=== PATIENT | female | born 1970 | race Caucasian/White ===

== ENCOUNTER 2017-03-24 10:50 | Observation (INO) ==
[2017-03-24] MEDS ORDERED: Ipratropium/Albuterol Neb 3 ML IH ONE (11:02)
[2017-03-24] MEDS ORDERED: methylPREDNISolone 125 MG/2 ML VIAL IVP ONE (12:04)
[2017-03-24] MEDS ORDERED: 0.9 % Sodium Chloride 1,000 ML IVC ONE (12:04)
[2017-03-24] MEDS ORDERED: Ketorolac 30 MG/ML VIAL IVP ONE (12:04)
[2017-03-24] MEDS ORDERED: Azithromycin 500 MG in D5% in Water 250 ML IVPB ONE (12:04)
--- NOTE | 2017-03-24 12:15 | Emergency Department Note ---
Disposition Clinical Impression: Sepsis Pneumonia Qualifiers: Pneumonia type: due to unspecified organism Laterality: left Lung location: lower lobe of lung Qualified Code(s): J18.1 - Lobar pneumonia, unspecified organism Disposition: Admitted As Inpatient Condition: Fair Time of Disposition: 13:50 ([facility]) URI/Sore Throat HPI - General Chief Complaint: ED Upper Respiratory Infection Stated Complaint: I am sick Time Seen by Provider: 03/24/17 11:00 Source: patient Mode of arrival: ambulatory Limitations: no limitations - History of Present Illness HPI Narrative: Runniness fever chills cough congestion and apnea no cyanosis denies diarrhea melena hematochezia hematemesis patient states that she has got flu symptoms aches all over she denies any syncope states that it hurts to breathe she is having wheezing she denies any sputum production denies Pt Subjective Complaint: fever, cough, nasal congestion, other (chest congestion and phlegm) Duration: constant, gradually worsening Severity: moderate, severe Severity scale (1-10): 7 Improves with: nothing Worsens with: exertion Context: sick contacts (strep x 2 and flu pt) Associated symptoms: Reports: fever, chills, voice changes, myalgias, nasal congestion, cough, chest pain, shortness of breath. Denies: diaphoresis, headache, rhinorrhea, sore throat, stiff neck, abdominal pain, nausea, vomiting , diarrhea, dysuria, rash, epistaxis, ear pain Treatments prior to arrival: acetaminophen, ibuprofen - Related Data Home Medications Medication Instructions Recorded Confirmed Paroxetine HCl [Paxil] 40 mg PO DAILY 02/20/17 03/24/17 Previous Rx's Medication Instructions Recorded Cyclobenzaprine [Flexeril] 10 mg PO TID PRN #15 tablet 02/20/17 Naproxen [Naprosyn] 500 mg PO BID PRN #20 tablet 02/20/17 Allergies Allergy/AdvReac Type Severity Reaction Status Date / Time Sulfa (Sulfonamide Allergy Hives Verified 02/20/17 17:14 Antibiotics) morphine AdvReac Headache Verified 02/20/17 17:14 All systems ED: reviewed and negative except as stated. Review of Systems: As Per HPI Constitutional: Reports: fever, chills, weakness Eyes: Denies: eye pain, eye discharge ENT ED: Reports: congestion. Denies: ear pain, throat pain Cardiovascular: Reports: chest pain (with respirations), dyspnea on exertion. Denies: palpitations Respiratory: Reports: cough, dyspnea, wheezes, sputum production Gastrointestinal: Denies: abdominal pain, nausea, vomiting Genitourinary: Denies: urgency, dysuria, frequency Musculoskeletal: Denies: back pain, neck pain Integumentary: Denies: rash, abrasion Neurological: Denies: headache Psychiatric: Denies: anxiety Endocrine: Denies: fatigue Hematological/Lymphatic: Denies: easy bleeding Allergic/Immunologic: Denies: facial swelling URI PMH - Past Medical History Medical history: Reports: other Psychiatric history: Reports: depression [employer] history: Reports: endometriosis, ectopic - Social History Smoking Status: Current every day smoker Alcohol use: Reports: none Drug use: Reports: none Physical Exam - General Limitations: no limitations General appearance: alert, in no apparent distress, anxious - Eye Eye exam: Present: normal appearance, PERRL, EOMI - ENT ENT exam: normal exam, normal oropharynx, mucous membranes moist, mucous membranes dry, TM's normal bilaterally, normal external ear exam - Neck Neck exam: Present: normal inspection, full ROM, trachea midline - Chest Chest inspection: Present: normal inspection, symmetric chest wall rise - Respiratory Respiratory exam: Present: wheezes, prolonged expiratory phase, other (Rhonchi in the bases tachypnea) - Cardiovascular Cardiovascular exam: Present: regular rate, normal rhythm, normal heart sounds - Abdominal Exam Abdominal exam: Present: soft, Non-Tender, normal bowel sounds. Absent: mass, pulsatile mass - Extremities Exam Extremities exam: Present: normal inspection, full ROM, normal capillary refill. Absent: tenderness, pedal edema, joint swelling, calf tenderness - Expanded Lower Extremity Exam Neurovascular/Tendon exam: Present: normal capillary refill, normal fine/light touch Gait: observed and normal - Back Exam Back exam: Present: normal inspection, full ROM. Absent: muscle spasm - Neurological Exam Neurological exam: Present: alert, oriented X3, CN II-XII intact, normal gait - Psychiatric Psychiatric exam: Present: normal affect, normal mood - Skin Skin exam: Present: warm, dry, intact, normal color Course Course Narrative: Patient seen and examined on initial evaluation patient had a fit of coughing which was making her slightly tachypneic and in addition heart rate was up a little bit because of ambulating to the bedside and review the patient based on her history chest x-ray labs were obtained at 1330 we were notified of the elevated lactic acid which then from the tachypnea and tachycardia meets criteria for sepsis repeat lactic will be done patient and oriented been started on antibiotics and had been given initial liter fluid bolus which after the first liter showed improvement of her tachycardia decreasing her heart rate down into the 100 blood pressure has remained stable respiratory rate still running in the 20s she is still afebrile at this time heart is tachycardic without click or gallop lungs still have rhonchi in the bases she has brisk capillary refill strong peripheral pulses skin is pink warm and dry still at this time after the liter bolus spoke with Dr. Ambrose agreed for admission transferred to [facility] stable Septic protocol started Vital Signs Temperature 97.0 F L 03/24/17 10:52 Pulse Rate 108 03/24/17 10:52 Respiratory Rate 24 03/24/17 10:52 Blood Pressure 120/87 03/24/17 10:52 O2 Sat by Pulse Oximetry 97 03/24/17 10:52 Temperature 98.3 F 03/25/17 00:05 Pulse Rate 85 03/25/17 00:05 Respiratory Rate 18 03/25/17 00:05 Blood Pressure 104/55 03/25/17 00:05 O2 Sat by Pulse Oximetry 94 03/25/17 00:05 Oxygen Delivery Oxygen Delivery Room Air Upper Respiratory Infection - Differential Diagnosis Differential Diagnosis: Likely: upper respiratory infection, other viral infection, bronchitis, pharyngitis, pneumonia - Medical Records Medical records reviewed: Yes I reviewed the patient's medical records. - Lab Data Lab results reviewed: Yes I reviewed the patient's lab results. Result diagrams: 03/24/17 12:15 03/24/17 12:15 Lab Results 03/24/17 03/24/17 03/24/17 Range/Units 12:15 12:15 12:15 WBC 7.0 (4.3-11.1) K/mcL RBC 4.94 (3.82-4.97) M/mcL Hgb 15.0 (11.5-15.4) g/dL Hct 44.1 (35.3-44.9) % MCV 89.3 (83.0-100.0) fL MCH 30.4 (28.0-33.3) pg MCHC 34.0 (31.6-35.5) g/dL RDW 13.4 (11.5-14.5) % Plt Count 190 (140-400) K/mcL MPV 11.4 (9.4-12.4) fL Immature Gran % 0.1 (0-4) % Seg Neutrophils % 64.8 % Lymphocytes % 24.0 % Monocytes % 10.3 % Eosinophils % 0.1 % Basophils % 0.7 % Neutrophils # 4.5 (1.6-8.9) K/mcL Lymphocytes # 1.7 (0.6-4.6) K/mcL Monocytes # 0.7 (0.0-1.3) K/mcL Eosinophils # 0.0 (0.0-0.6) K/mcL Basophils # 0.1 (0.0-0.2) K/mcL PT (9.4-12.1) Seconds INR APTT 32.3 (26.0-36.0) Seconds Sodium 142 (136-145) mEq/L Potassium 3.3 L (3.5-4.5) mEq/L Chloride 104 (98-109) mEq/L Carbon Dioxide 27 (19-29) mEq/L BUN 8 (7-20) mg/dL Creatinine 0.92 (0.57-1.11) mg/dL Est GFR ( Amer) > 60 (> 60) Est GFR (Non-Af Amer) > 60 (> 60) BUN/Creatinine Ratio 9 (6-26) Glucose 118 H (70-99) mg/dL Calculated Osmolality 293 (280-300) Lactic Acid (0.5-2.2) mmol/L Calcium 9.1 (8.6-10.8) mg/dL Total Bilirubin 0.3 (0.2-1.2) mg/dL AST 23 (5-34) Units/L ALT 30 (0-55) Units/L Alkaline Phosphatase 41 (38-126) Units/L Serum Total Protein 6.9 (6.0-8.3) g/dL Albumin 3.4 L (3.5-5.0) g/dL Globulin 3.5 (2.4-3.5) g/dL Albumin/Globulin Ratio 1.0 L (1.1-2.2) 11/09/17 11/09/17 Range/Units 12:15 12:15 WBC (4.3-11.1) K/mcL RBC (3.82-4.97) M/mcL Hgb (11.5-15.4) g/dL Hct (35.3-44.9) % MCV (83.0-100.0) fL MCH (28.0-33.3) pg MCHC (31.6-35.5) g/dL RDW (11.5-14.5) % Plt Count (140-400) K/mcL MPV (9.4-12.4) fL Immature Gran % (0-4) % Seg Neutrophils % % Lymphocytes % % Monocytes % % Eosinophils % % Basophils % % Neutrophils # (1.6-8.9) K/mcL Lymphocytes # (0.6-4.6) K/mcL Monocytes # (0.0-1.3) K/mcL Eosinophils # (0.0-0.6) K/mcL Basophils # (0.0-0.2) K/mcL PT 13.4 H (9.4-12.1) Seconds INR 1.2 APTT (26.0-36.0) Seconds Sodium (136-145) mEq/L Potassium (3.5-4.5) mEq/L Chloride (98-109) mEq/L Carbon Dioxide (19-29) mEq/L BUN (7-20) mg/dL Creatinine (0.57-1.11) mg/dL Est GFR ( Amer) (> 60) Est GFR (Non-Af Amer) (> 60) BUN/Creatinine Ratio (6-26) Glucose (70-99) mg/dL Calculated Osmolality (280-300) Lactic Acid 2.7 H (0.5-2.2) mmol/L Calcium (8.6-10.8) mg/dL Total Bilirubin (0.2-1.2) mg/dL AST (5-34) Units/L ALT (0-55) Units/L Alkaline Phosphatase (38-126) Units/L Serum Total Protein (6.0-8.3) g/dL Albumin (3.5-5.0) g/dL Globulin (2.4-3.5) g/dL Albumin/Globulin Ratio (1.1-2.2) - Radiology Data Radiology results reviewed: Yes I reviewed the patient's radiology results. ITS Impressions Chest X-Ray 03/24/17 11:03 IMPRESSION: 1. Normal lung volumes with no significant hyperaeration. 2. Nonspecific lateral left lung base peripheral subsegmental opacity which could represent focal subsegmental atelectasis versus possible pneumonia. D/ / 03/24/2017 12:14:12 Dano Gudino MD / britta Interpreting Provider: Dano Gudino MD Chest CT 03/24/17 12:02 IMPRESSION: Masslike nodular opacity in the left lower lobe anteriorly. Findings may represent focal pneumonia versus underlying mass. There is suspected mild underlying adenopathy. Short-term follow-up is recommended with a CT with contrast. Alternatively a nuclear medicine PET scan versus histologic sampling could be considered depending upon clinical correlation. D/ / 03/24/2017 13:20:51 Andres Gunter MD / britta Interpreting Provider: Andres Gunter MD Critical Care Time Critical Care Time: No
[2017-03-24 12:32] LABS: Basophils # 0.1 K/mcL (0.0-0.2); Basophils % 0.7 %; Eosinophils % 0.1 %; Hematocrit 44.1 % (35.3-44.9); Immature Granulocytes % 0.1 % (0-4); Lymphocytes # 1.7 K/mcL (0.6-4.6); Mean Corpuscular Hemoglobin 30.4 pg (28.0-33.3); Mean Corpuscular Volume 89.3 fL (83.0-100.0); Mean Platelet Volume 11.4 fL (9.4-12.4); Monocytes # 0.7 K/mcL (0.0-1.3); Monocytes % 10.3 %; Neutrophils # 4.5 K/mcL (1.6-8.9); Platelet Count 190 K/mcL (140-400); Red Blood Count 4.94 M/mcL (3.82-4.97); Red Cell Distribution Width 13.4 % (11.5-14.5); Segmented Neutrophils % 64.8 %
[2017-03-24 12:36] LABS: INR 1.2; Prothrombin Time 13.4 Seconds (9.4-12.1)
[2017-03-24 12:48] LABS: Alanine Aminotransferase 30 Units/L (0-55); Albumin 3.4 g/dL (3.5-5.0); Alkaline Phosphatase 41 Units/L (38-126); Aspartate Amino Transferase 23 Units/L (5-34); BUN/Creatinine Ratio 9 (6-26); Bilirubin,Total 0.3 mg/dL (0.2-1.2); Blood Urea Nitrogen 8 mg/dL (7-20); Calcium 9.1 mg/dL (8.6-10.8); Carbon Dioxide 27 mEq/L (19-29); Chloride 104 mEq/L (98-109); Globulin 3.5 g/dL (2.4-3.5); Glucose 118 mg/dL (70-99); Osmolality,Calculated 293 (280-300); Potassium 3.3 mEq/L (3.5-4.5); Sodium 142 mEq/L (136-145); Total Protein 6.9 g/dL (6.0-8.3); eGFR For African Americans > 60 (> 60); eGFR For Non-African Americans > 60 (> 60)
[2017-03-24] MEDS ORDERED: Ibuprofen 400 MG TABLET PO PRN (14:10)
[2017-03-24] MEDS ORDERED: Ondansetron ODT 4 MG TAB.RAPDIS SL PRN (14:10)
[2017-03-24] MEDS ORDERED: Ketorolac 30 MG/ML VIAL IVP PRN (14:10)
[2017-03-24] MEDS ORDERED: Naloxone 0.4 MG/ML INJ IVP PRN (14:10)
[2017-03-24] MEDS: 0.9 % Sodium Chloride 1,000 ML IVC SCH ×8 (16:04→16:15)
[2017-03-24] MEDS: *HR* OxyCODONE Immed Rel 5 MG TABLET PO PRN (17:16)
--- NOTE | 2017-03-24 17:42 | Internal Med History&Physical ---
Date of Encounter: 03/24/17 Time of Encounter: 17:10 Assessment and Plan (1) Pneumonia Current visit: Yes Status: Acute She was given Rocephin and Zithromax in emergency room. These will be continued with lactobacillus. Qualifiers: Pneumonia type: due to unspecified organism Laterality: left Lung location: lower lobe of lung Qualified Code(s): J18.1 - Lobar pneumonia, unspecified organism (2) Hypokalemia Current visit: Yes Status: Acute Will order IV fluids with supplemental potassium Internal Medicine - H&P: HPI Chief complaint: cough Admitted From: Home Plans for Post Hospital Care: Home History of present illness: Ms. Norton is a 46 year old female who came to emergency room stating she had onset of cough with worsening dyspnea over the past 2 days. The cough is generally nonproductive. She was evaluated in emergency room was felt to have possible pneumonia with sepsis. She was admitted to [facility] floor for ongoing care needs. She reports a previous episode of pneumonia November 2016. Respiratory history is significant for having smoked since age 13 up to 2 packs per day. She has not had PFTs and does not use home oxygen. She has not been tested for sleep apnea. Past Med Surg Social Fam HX - Past Medical History Medical history: other Psychiatric history: depression - Past Surgical History Surgical History: cholecystectomy, hysterectomy - Social History Smoking Status: Current every day smoker Smokeless Tobacco Status: No Alcohol use: none Drug use: none - Family History Maternal Grandfather Living Status: Age at : 79 Hx Family Cancer: Yes Internal Medicine - H&P: Meds Cyclobenzaprine [Flexeril] 10 mg PO TID PRN #15 tablet 02/20/17 [Rx] Naproxen [Naprosyn] 500 mg PO BID PRN #20 tablet 02/20/17 [Rx] Paroxetine HCl [Paxil] 40 mg PO DAILY 02/20/17 [History] 3 Allergy/AdvReac Type Severity Reaction Status Date / Time Sulfa (Sulfonamide Allergy Hives Verified 02/20/17 17:14 Antibiotics) morphine AdvReac Headache Verified 02/20/17 17:14 All Systems PM: A 10-system review of systems was performed and is negative for pertinent findings except as documented above in the HPI. Review of systems: Gen.: She states her weight has been stable the past few months Cardiovascular: She denies AR hypertension heart failure angina DVT or pulmonary embolus Respiratory: As per history of present illness GI: She has had cholecystectomy. She had pancreatitis many years ago when she consumed alcohol. She has not drunk for 8 years. She denies disorders of her liver. : She has had kidney stones remotely. She denies other kidney or bladder disorders. Neurologic: She denies large distribution strokes or seizures. Endocrine: She denies diabetes thyroid disease or hyperlipidemia Hematology/oncology: She denies blood disorders or cancers or anemia Psychiatric: She has anxiety and depression but denies other mental health issues. [place] skeletal: She denies arthritis gout or other bone joint or muscle disorders. - Constitutional Vitals: Temp Pulse Resp BP Pulse Ox 98.9 F 96 17 125/76 93 03/24/17 14:24 03/24/17 14:24 03/24/17 14:24 03/24/17 14:24 03/24/17 14:24 Exam: Gen.: She is a well-developed well-nourished female lying in bed who appears in minimal respiratory distress at present time. She coughs frequently during examination. HEENT: Head is atraumatic and normocephalic. Eyes: EOMI. There is no scleral icterus. Mouth: Mucosa is moist. Neck: Supple and nontender. There is no thyromegaly or adenopathy noted. Heart: Regular without murmurs gallops or ectopics Lungs: No wheezes or crackles or egophony are heard. Abdomen: Soft and nontender. No masses or guarding are noted. Extremities: There is no cyanosis edema or clubbing noted. Dorsalis pedis and posterior tibial pulses are trace to 1+ palpable bilaterally. Neurologic: Mental status: She is talkative and a good historian. Cranial nerves: Smile is symmetric. Forehead wrinkles bilaterally. Tongue protrudes midline. EOMI. Motor: There is no pronator drift. Cerebellar: Finger to nose is intact bilaterally. Skin: Warm and dry Internal Med - H&P Results - Labs CBC & Chem 7: 03/24/17 12:15 03/24/17 12:15
[2017-03-24] MEDS: 0.45 % Sodium Chloride w/KCl 20 MEQ/1,000 ML MLS IVC SCH (18:12)
[2017-03-24] MEDS: traZODone 50 MG TABLET PO SCH (20:25)
[2017-03-25] MEDS: 0.45 % Sodium Chloride w/KCl 20 MEQ/1,000 ML MLS IVC SCH (04:23)
[2017-03-25 05:29] LABS: Basophils % 0.3 %; Hematocrit 36.6 % (35.3-44.9); Hemoglobin 12.3 g/dL (11.5-15.4); Immature Granulocytes % 0.4 % (0-4); Lymphocytes # 1.4 K/mcL (0.6-4.6); Lymphocytes % 19.3 %; Mean Corpuscular HGB Conc 33.6 g/dL (31.6-35.5); Mean Corpuscular Volume 89.3 fL (83.0-100.0); Mean Platelet Volume 11.8 fL (9.4-12.4); Monocytes # 0.6 K/mcL (0.0-1.3); Monocytes % 9.1 %; Platelet Count 174 K/mcL (140-400); Red Cell Distribution Width 13.2 % (11.5-14.5); Segmented Neutrophils % 70.9 %
[2017-03-25 05:48] LABS: BUN/Creatinine Ratio 10 (6-26); Blood Urea Nitrogen 7 mg/dL (7-20); Calcium 8.7 mg/dL (8.6-10.8); Carbon Dioxide 23 mEq/L (19-29); Chloride 110 mEq/L (98-109); Glucose 112 mg/dL (70-99); Osmolality,Calculated 295 (280-300); Potassium 4.3 mEq/L (3.5-4.5); Sodium 143 mEq/L (136-145); eGFR For African Americans > 60 (> 60); eGFR For Non-African Americans > 60 (> 60)
[2017-03-25] MEDS: *HR* OxyCODONE Immed Rel 5 MG TABLET PO PRN ×4 (07:37→21:46)
--- NOTE | 2017-03-25 10:25 | Internal Med Progress Note ---
Date of Encounter: 03/25/17 Time of Encounter: 10:18 - Assessment and plan (1) Pneumonia Current Visit: Yes Status: Acute Assessment and plan: March 25. Continue Rocephin and Zithromax with lactobacillus. Will add Tessalon Perles. Anticipate discharge home tomorrow if stable. Qualifiers: Pneumonia type: due to unspecified organism Laterality: left Lung location: lower lobe of lung Qualified Code(s): J18.1 - Lobar pneumonia, unspecified organism (2) Hypokalemia Current Visit: Yes Status: Acute Assessment and plan: March 25. Resolved. Continue IV fluids with supplemental potassium. - Subjective Interval history: March 25. She has no new complaints and feels slightly improved but not back to her baseline. She still has significant nonproductive cough. - Constitutional Vitals: Temp Pulse Resp BP Pulse Ox 98.0 F 85 18 117/75 95 03/25/17 09:45 03/25/17 09:45 03/25/17 09:45 03/25/17 09:45 03/25/17 09:45 Exam: She is lying in bed and appears in no significant distress. Her affect is overall cheerful. I reviewed her medications and lab results. Internal Medicine: Result - Labs CBC & Chem 7: 03/25/17 04:44 03/25/17 04:44 Labs: Short CBC 03/25/17 Range/Units 04:44 WBC 7.0 (4.3-11.1) K/mcL Hgb 12.3 D (11.5-15.4) g/dL Hct 36.6 (35.3-44.9) % Plt Count 174 (140-400) K/mcL Neutrophils # 5.0 (1.6-8.9) K/mcL BMP 03/25/17 04:44 Sodium 143 Potassium 4.3 D Chloride 110 H Carbon Dioxide 23 BUN 7 Creatinine 0.71 Glucose 112 H Calcium 8.7 - ABG Interpretation ABG results: PT/INR, D-dimer PT 13.4 Seconds (9.4-12.1) H 03/24/17 12:15 Consult Discharge Plan - Plan Referrals: NONE,PCP [Primary Care Provider] - 1 week Harsh Cosmeio [Family Provider] - 1 week
[2017-03-25] MEDS ORDERED: 0.45 % Sodium Chloride w/KCl 20 MEQ/1,000 ML MLS IVC SCH (10:27)
[2017-03-25] MEDS: Benzonatate 100 MG CAPSULE PO SCH ×3 (12:26→21:46)
[2017-03-25] MEDS ORDERED: Azithromycin 500 MG in D5% in Water 250 ML IVPB SCH ×2 (13:00→14:00)
[2017-03-25] MEDS ORDERED: cefTRIAXone 2,000 MG in Water for inj. (sterile) 20 ML IVP SCH (13:00)
[2017-03-25] MEDS: traZODone 50 MG TABLET PO SCH (21:46)
[2017-03-26 06:39] VITALS: BP 103/67
[2017-03-26] MEDS: Benzonatate 100 MG CAPSULE PO SCH (08:42)
[2017-03-26] MEDS: *HR* OxyCODONE Immed Rel 5 MG TABLET PO PRN (08:42)
--- NOTE | 2017-03-26 09:06 | Discharge Summary ---
Date of Encounter: 03/26/17 Time of Encounter: 08:55 - Discharge Diagnosis (1) Pneumonia Priority: Primary Status: Acute Qualifiers: Pneumonia type: due to unspecified organism Laterality: left Lung location: lower lobe of lung Qualified Code(s): J18.1 - Lobar pneumonia, unspecified organism (2) Hypokalemia Priority: Secondary Status: Resolved - Discharge Medications Prescriptions: Cefuroxime PO [Ceftin] 500 mg PO Q12HR #6 tablet Azithromycin [Zithromax] 250 mg PO Q24H #3 tablet Benzonatate [Tessalon] 100 mg PO TID #9 capsule Lactobacillus [Culturelle] 1 each PO BID #6 cap.sprink Home Medications: Cyclobenzaprine [Flexeril] 10 mg PO TID PRN #15 tablet 02/20/17 [Rx] Naproxen [Naprosyn] 500 mg PO BID PRN #20 tablet 02/20/17 [Rx] Paroxetine HCl [Paxil] 40 mg PO DAILY 02/20/17 [History] Azithromycin [Zithromax] 250 mg PO Q24H #3 tablet 03/26/17 [Rx] Benzonatate [Tessalon] 100 mg PO TID #9 capsule 03/26/17 [Rx] Cefuroxime PO [Ceftin] 500 mg PO Q12HR #6 tablet 03/26/17 [Rx] Lactobacillus [Culturelle] 1 each PO BID #6 cap.sprink 03/26/17 [Rx] Allergies/Adverse Reactions: 3 Allergy/AdvReac Type Severity Reaction Status Date / Time Sulfa (Sulfonamide Allergy Hives Verified 02/20/17 17:14 Antibiotics) morphine AdvReac Headache Verified 02/20/17 17:14 Date of admission: 03/24/17 14:02 Primary care physician: PCP NONE - Patient Status Disposition: Home, Self-Care Condition: Fair Functional capacity at discharge: independent ambulation Overall status at discharge: patient is progressing back to baseline - Discharge Instructions Follow Up With: NONE,PCP [Primary Care Provider] - 1 week - Diet and Activity Activity: resume usual activities as tolerated Diet: advance to your usual diet Hospital course: Ms. Norton is a 46 year old female who came to emergency room stating she had onset of cough with worsening dyspnea over the past 2 days. The cough is generally nonproductive. She was evaluated in emergency room was felt to have possible pneumonia with sepsis. She was admitted to [facility] for ongoing care needs. Initial orders were written by the emergency room physician. I saw her on March 24 and performed a history and physical. She was started on IV Rocephin and Zithromax with lactobacillus. She had gradual clinical improvement over the course of hospitalization. She spiked a fever of 102.6 the evening of March 25. She felt stable for discharge however when I saw her on March 26. I told her I was not certain her infection was bacterial but will continue with antibiotics and probiotics for 3 additional days at discharge. I encouraged her strongly to discontinue smoking. She will have room-air oximetry checked on a 6 minute walk prior to discharge. Supplemental potassium was given and hypokalemia resolved. She will follow with a PCP within one week. - Time Spent with Patient Total time spent providing and/or coordinating discharge services: - Constitutional Vitals: Temp Pulse Resp BP Pulse Ox 98.2 F 88 16 103/67 96 03/26/17 06:00 03/26/17 06:00 03/26/17 06:00 03/26/17 06:00 03/26/17 06:00
== END 2017-03-26 10:15 | disposition home or self-care (01) ==
LOC: INPPIK 10:50 → EMEROOPIK 10:50 → INPPIK 14:14
PROVIDERS: ADMIT Internal Medicine; ATTEND Internal Medicine